=== PATIENT | female | born 1990 | race Caucasian/White ===

== ENCOUNTER 2017-03-23 11:08 | Emergency (ER) | payer SELFPAY ==
[~2017-03-23] VITALS: Ht 165.1 cm; Wt 69.2 kg
[~2017-03-23 11:08] MED LIST: NO DAILY MEDICATIONS
[2017-03-23 11:10] VITALS: Ht 165.1 cm; Wt 69.2 kg
--- OUTSIDE RECORDS SUMMARY | 2017-03-23 11:12 | XMS REPORT | Continuity of Care Document ---
Author Author [facility] Organization [facility] Address Unknown Phone Unavailable Support Name Relationship Address Phone BREANNA VILLALBA Aj DAMON Caregiver [address] [place] [address] Unavailable SCOTTYURYY Next Of Kin [address] [place], [place] [phone] Insurance Providers Guarantor Angel Scott Address [address] [place] [address] Payer Self Pay Subscriber's Name Angel Scott Nicole Relationship 18 Self Chief Complaint and Reason for Visit Chief Complaint Skin Rash/Abscess/Injury Reason for Visit [id number] Problems Past Problems Medical Problem Onset Date Right shoulder strain Unknown Spider bite Unknown Medications Current Home Medications Medication Dose Units Route Directions Days Qty Instructions Start Date No Daily Medications 03/13/17 Social History Social History Problem Response Recorded Date/Time Onset Date Status Hx Substance Use No 10/01/2009 4:28am Not Applicable Not Applicable Hx Alcohol Use No 10/01/2009 4:28am Not Applicable Not Applicable Hospital Discharge Instructions No hospital discharge instructions. Plan of Care Discharge Date 03/13/17 9:38am Disposition 01 DISCHARGED HOME, SELF-CARE Condition at Discharge Stable Instructions/Education Provided Insect Bite or Sting (DC) Brown Recluse Spider Bite (DC) Prescriptions See Medication Section Additional Instructions/Education You may take benadryl 25 mg every 4-6 hours if needed for allergic reaction, or may try claritin 10 mg daily. Watch for signs of infection and follow in clinic if concerned. Functional Status No functional status results. Allergies, Adverse Reactions, Alerts Allergen Type Severity Reaction Status Last Updated Penicillin g Allergy Mild RASH Active 03/13/17 Immunizations Query Response on File Recorded Date/Time Hx Influenza Vaccination Y JUL 2009, Aug 2009 10/01/09 4:28am Hx Pneumococcal Vaccination No 10/01/09 4:28am Hx Influenza Vaccination Y JUL 2009, H1N1 AUG 2009 10/01/09 4:28am Influenza Vaccine Hx NO 03/13/17 9:21am Tetanus Diptheria Vaccine History UNSURE 03/13/17 9:21am Vital Signs Acute Vital Signs Vital Response Date/Time Temperature (Fahrenheit) 97.3 deg F (96.8 - 99.1) 03/13/2017 9:23am Temperature (Calculated Celsius) 36.78297 degrees C (36.0 - 37.3) 03/13/2017 9:23am Pulse Rate (adult) 76 bpm (60 - 100) 03/13/2017 9:23am Respiratory Rate 16 breaths/min (10 - 20) 03/13/2017 9:23am O2 Sat by Pulse Oximetry 98 % (90 - 100) 03/13/2017 9:23am Blood Pressure 105/76 mm Hg 03/13/2017 9:23am Height (Inches) 63.25 inches 03/13/2017 9:23am Weight (Kilograms) 69.400 kg 03/13/2017 9:23am Body Mass Index (BMI) 26.0 03/13/2017 9:23am Results No known relevant diagnostic tests, laboratory data and/or discharge summary. Procedures No known history of procedures. Encounters Encounter Location Arrival/Admit Date Discharge/Depart Date Attending Provider Departed Emergency Room [facility] 03/13/17 9:11am 03/13/17 9: 38am BREANNA VILLALBA APRN Recent Diagnosis
[2017-03-23] MEDS ORDERED: NORMAL SALINE 1,000 ML IV ONE (11:23)
[2017-03-23] MEDS ORDERED: ONDANSETRON 4mg/2ml INJECTION IV ONE (11:30)
[2017-03-23] MEDS ORDERED: KETOROLAC 30mg/ml INJECTION IV ONE (11:30)
--- NOTE | 2017-03-23 11:31 | ERPDOC ---
Departure Disposition Decision Date: March 23, 2017 Disposition Decision Time: 13:01 Disposition: 01 DISCHARGED HOME, SELF-CARE Impression Impression Impression: Primary Impression: Ureterolithiasis Severity: Moderate Condition: Improved Seen By: Physician only Referrals: YOUR PHYSICIAN 1 Week Patient Instructions: Ureteral Stones (ED) Problems/Meds/Labs Reviewed?: Yes Medications reviewed and manag: Yes Additional Instructions: You have a kidney stone. Drink lots of water, take the flomax to help pass the stone, and use naproxen or ibuprofen to help with your pain. Only take the norco if the naproxen does not improve your pain. Follow up with your doctor in the next week to ensure that you have passed the stone. Departure Forms: Return to Work/School Permit Follow up care ordered?: Yes Mental Status: Alert, Oriented Scripts Tamsulosin HCl (Flomax) 0.4 Mg Capsule 0.4 MG PO HS for 14 Days, #14 CAP Take 1 capsule, by mouth, one time a day at BEDTIME. Prov: FEBRUARYPRUDENCIO DO 03/23/17 Hydrocodone/Acetaminophen ([place] 5-325 Tablet) 5-325 Tablet 1 TAB PO Q6HR Y for PAIN, #20 TAB 0 Refills Prov: FEBRUARYPRUDENCIO DO 03/23/17 HPI - Female General Chief Complaint: Abdominal Pain Stated Complaint: RIGHT SIDE PAIN Time Seen by Provider: 11:23 Source: patient Exam Limitations: no limitations HPI - Female Initial Comments 26yo woman presents to the ER today for right sided abdominal pain with radiation to her right flank. Pain started appx 2.5hrs ago. Pt has not taken anything for the pain; has never had similar sx. Is nauseated, but has not vomited. Is uncomfortable in any position. Occurred At: home Onset: Rapid Duration: 1-3 hrs Pain Scale: Now & Worst: 8/10 Severity/Quality: cramping, sharpness, stabbing Location: RLQ Radiation: right flank Activities at Onset: rest Prior Genitourinary Problems: none Associated Symptoms: nausea/vomiting, urinary frequency Hx of Similar Symptoms: No Is Pt now?: No Expected Date of Delivery: Oct 05, 2009 : 1 Para: 0 Allergies: Coded Allergies: penicillin G (Verified Allergy, Mild, RASH, 03/13/17) Past History Past Medical History Pt denies signifigant PMH Family History Family PMH: FOUND: cancer Vaccines Hx Influenza Vaccination: Yes (JUL 2009, H1N1 AUG 2009) Hx Pneumococcal Vaccination: No Social History Substance Use Type: does not use Alcohol Intake: occasionally Review of Systems GI Upper Abdomen: nausea, vomiting, DENIES: dysphagia, food intolerances, heartburn/indigestion, hematemesis Lower Abdomen: pain, DENIES: blood in stool, sana-colored stools, constipation , diarrhea, melena, painful BM General: frequency, urgency, DENIES: burning, cloudy urine, discharge, polyuria , renal stones All other Systems All Other Systems: Reviewed and Negative Physical Exam General General Nourishment: well nourished, well developed, appears stated age, adult , acute distress General Body Habitus: well groomed Vitals and Pain First Documented Vital Signs Date Time Temp Pulse Resp B/P Pulse Ox O2 Delivery O2 Flow Rate FiO2 03/23/17 11:10 97.8 71 18 122/82 99 Room Air Weight: Kilograms: 69.200 Height (feet): 5 Height (inches): 5.00 Triage Pain Scale: RN VS reviewed by Provider: Yes Normal Exams: Head: Normocephalic w/o trauma Eyes: Pupils are PERRLA w/ EOMI, No scleral icterus, irritation ENMT: No facial trauma, nasal exudates, pharyngeal erythema Neck: Full range of motion, without adenopathy, JVD Lymphatic: No lymphadenopathy Musculoskeletal: No tenderness, or deformity noted Integumentary: No rashes, hives, or bruising noted Neurologic: Patient is alert, and oriented Psychiatric: Patient exhibits, appropriate attention Respiratory (brief) Respiratory: FOUND: clear all haywood, equal bilaterally, symmetrical, NOT FOUND : rales, wheezes Cardiovascular (brief) Cardiac: FOUND: regular rate, regular rhythm, NOT FOUND: click, gallop, murmur , pedal edema, peripheral edema, rub Capillary Refill: <2 sec Pulses: all distal extremities, equal, strong Abdomen (brief) Abdominal Brief: FOUND: bowel normo active x4, soft, tender, NOT FOUND: distended, hepatosplenomegaly, pulsatile mass Comments Mildly TTP in periumbilicus; pos Kermit's on right. Differential Diagnoses Considering: Ectopic , New Diagnosis, , Pyelonephritis, Renal Colic, Tubovarian Abscess, UTI Progress Results/Orders Orders Procedure Category Date Status Time Cbc W/Auto LAB 03/23/17 Complete Diff-Reflex Manual 11:23 Bmp - Basic Metabolic LAB 03/23/17 Complete Panel 11:23 Iv Lock (Ed Only) EDM 03/23/17 Transmitted 11:23 Normal Saline (Normal PHA 03/23/17 Complete Saline Iv) 11:23 LAB 03/23/17 Complete Qualitative, Urine 11:23 Ct Renal W/Wo Contrast CT 03/23/17 Resulted Ketorolac (Toradol) PHA 03/23/17 Complete 11:30 Ondansetron Inj PHA 03/23/17 Complete (Zofran) 11:30 Iohexol (Omnipaque) PHA 03/23/17 Complete 11:49 Normal Saline (Ns) PHA 03/23/17 Complete 11:49 Saline Flush (Iv PHA 03/23/17 Complete Flush) 11:49 UA, LAB 03/23/17 Complete Dip&Micro(Complete) & 11:40 Hydrocodone/Acetaminophen PHA 03/23/17 Complete ([place] 5/325) 13:00 Tamsulosin (Flomax PHA 03/23/17 Complete 0.4 Mg) 13:00 Lab Results Laboratory Tests Test 03/23/17 11:40 White Blood Count 12.3T/MM3 Red Blood Count 4.42M/MM3 Hemoglobin 13.9GM/DL Hematocrit 41.8% Mean Corpuscular Volume 94.6UM3 Mean Corpuscular Hemoglobin 31.4UUG Mean Corpuscular Hemoglobin Concent 33.3GM/DL RDW Standard Deviation 38.6FL Platelet Count 405T/MM3 Mean Platelet Volume 10.4UM3 Immature Granulocyte % (Auto) 0.2% Neutrophils (%) (Auto) 72.7% Lymphocytes (%) (Auto) 21.1% Monocytes (%) (Auto) 4.3% Eosinophils (%) (Auto) 1.3% Basophils (%) (Auto) 0.4% Absolute Immature Granulocyte (auto 0.03T/MM3 Absolute Neutrophils (auto) 9.0T/MM3 Absolute Lymphocytes (auto) 2.6T/MM3 Absolute Monocytes (auto) 0.5T/MM3 Absolute Eosinophils (auto) 0.2T/MM3 Absolute Basophils (auto) 0.1T/MM3 Urine Collection Type Cleancatch-midstream Urine Color [place] Urine Turbidity Cloudy Urine pH 5.0 Urine Specific [place] 1.020 Urine Protein Negative Urine Glucose (UA) Negative Urine Ketones Negative Urine Blood Inconcl due to color Urine Nitrite Negative Urine Bilirubin Inconcl due to color Urine Urobilinogen 0.2EU/DL Urine Leukocyte Esterase Negative Urine RBC 5-10/HPF Urine WBC 0-1/HPF Urine Squamous Epithelial Cells 5-10 Urine Amorphous Urates Many Urine Bacteria Trace Urine Mucus Present Urine Culture Indicated Cult not indicated Urine Test Negative Turbidity < 20 Sodium Level 145MEQ/L Potassium Level 3.8MEQ/L Chloride Level 103MEQ/L Carbon Dioxide Level 27MEQ/L Anion Gap 15MEQ/L Blood Urea Nitrogen 11.0MG/DL Creatinine 0.7MG/DL Glomerular Filtration Rate Calc 100 BUN/Creatinine Ratio 16RATIO Glucose Level 108MG/DL Calculated Osmolality 279MOSM/KG Calcium Level 9.7MG/DL Icterus Index < 2 Chemistry Specimen Hemolysis 25 Medications Current ED Medications Sodium Chloride (Normal Saline IV) 1,000 ml @ 0 mls/hr Q0M ONCE IV Last administered on 03/23/17 11:39; Start 03/23/17 at 11:23; Stop 03/23/17 at 11:25 ; Status DC Ketorolac Tromethamine (Toradol) 30 mg O ONCE IV Last administered on 11:42; Start 03/23/17 at 11:30; Stop 03/23/17 at 11:31; Status DC Ondansetron HCl (Zofran) 4 mg O ONCE IV Last administered on 03/23/17 11:40; Start 03/23/17 at 11:30; Stop 03/23/17 at 11:31; Status DC Iohexol 1 bottle 1 bottle STK-MED ONCE .ROUTE ; Start 03/23/17 at 11:49; Stop at 11:50; Status DC Sodium Chloride (NS) 100 ml @ As Directed STK-MED ONCE .ROUTE ; Start 03/23/17 at 11:49; Stop 03/23/17 at 11:50; Status DC Sodium Chloride (Iv Flush) 10 ml STK-MED ONCE .ROUTE ; Start 03/23/17 at 11:49; Stop 03/23/17 at 11:50; Status DC Acetaminophen/ Hydrocodone Bitart ([place] 5/325) 1 tab O ONCE PO Last administered on 03/23/17 13:04; Start 03/23/17 at 13:00; Stop 03/23/17 at 13:01 ; Status DC Tamsulosin HCl (FLOMAX 0.4 mg) 0.4 mg O ONCE PO Last administered on 13:04; Start 03/23/17 at 13:00; Stop 03/23/17 at 13:01; Status DC Progress Progress Pt with 4mm ureteral stone on the right. Will treat pain and instruct to f/u with PCM. Pt voiced understanding of dx, prognosis, tx, and f/u need. CT CT : CT: Renal IV contrast Interpretation: Abnormal (Obstructing 4 mm right distal ureteral stone at the ureterovesicular junction), Reviewed Written Report PRUDENCIO DEAN DO March 23, 2017 11:31
[2017-03-23] MEDS ORDERED: IOHEXOL 300 MG/ML 100ml INJECTION ONE (11:49)
[2017-03-23] MEDS ORDERED: NORMAL SALINE 100 ML ONE (11:49)
[2017-03-23] MEDS ORDERED: SALINE FLUSH 10ml SYRINGE ONE (11:49)
[2017-03-23 11:58] LABS: COLOR,URINE ORANGE (YELLOW)
[2017-03-23 11:59] LABS: BASOPHILS # (AUTO) 0.1 T/MM3 (0-0.2); BASOPHILS % (AUTO) 0.4 % (0-2); EOSINOPHILS # (AUTO) 0.2 T/MM3 (0-0.5); EOSINOPHILS % (AUTO) 1.3 % (0-4); HCT - HEMATOCRIT 41.8 % (36-46); HGB - HEMOGLOBIN 13.9 GM/DL (12-16); IMMATURE GRANULOCYTE # (AUTO) 0.03 T/MM3 (0.00-0.03); IMMATURE GRANULOCYTE % (AUTO) 0.2 % (0.0-0.5); LYMPHOCYTES # (AUTO) 2.6 T/MM3 (1-4.8); LYMPHOCYTES % (AUTO) 21.1 % (23-45); MEAN CORPUSCULAR HGB 31.4 UUG (26-34); MEAN CORPUSCULAR HGB CONC(MCHC 33.3 GM/DL (31-37); MEAN CORPUSCULAR VOLUME 94.6 UM3 (80-100); MEAN PLATELET VOLUME 10.4 UM3 (9.4-12.4); MONOCYTES # (AUTO) 0.5 T/MM3 (0-0.8); MONOCYTES % (AUTO) 4.3 % (0-9.0); NEUTROPHILS % (AUTO) 72.7 % (33-66); RED BLOOD COUNT 4.42 M/MM3 (4.00-5.20); WBC - WHITE BLOOD COUNT 12.3 T/MM3 (4.5-11.0)
[2017-03-23 12:05] LABS: LEUKOCYTE ESTERASE ,URINE NEGATIVE (NEGATIVE); NITRITE,URINE NEGATIVE (NEGATIVE)
[2017-03-23 12:06] LABS: UROBILINOGEN,URINE 0.2 EU/DL (NORMAL)
[2017-03-23 12:07] LABS: BLOOD, URINE INCONCL DUE TO COLOR (NEGATIVE)
[2017-03-23 12:09] LABS: ANION GAP 15 MEQ/L (5-15); BUN/CREATININE RATIO 16 RATIO (6-26); CALCIUM 9.7 MG/DL (8.4-10.2); CHLORIDE 103 MEQ/L (98-107); CO2 - CARBON DIOXIDE 27 MEQ/L (22-30); CREATININE 0.7 MG/DL (0.7-1.2); GLOMERULAR FILTRATION RATE 100; GLUCOSE 108 MG/DL (65-110); POTASSIUM 3.8 MEQ/L (3.6-5); SODIUM 145 MEQ/L (134-144); WBC,URINE 0-1 /HPF (0-5)
[2017-03-23 12:10] LABS: BACTERIA,URINE TRACE (NEGATIVE); MUCUS,URINE PRESENT
--- NOTE | 2017-03-23 12:24 | NUR ---
IMAGING PT TO IMAGING AT THIS TIME VIA CART. NO SIGN OF DISTRESS AT THIS TIME.
--- NOTE | 2017-03-23 12:36 | NUR ---
IMAGING PT RETURN TO ROOM VIA CART FRO IMAGING AT THIS TIME.
--- NOTE | 2017-03-23 12:55 | DI ---
Indication: ITS.REASON right flank pain for one day with nausea and vomiting PROCEDURE: CT RENAL W/WO CONTRAST: Encounter: Initial Comparison: None Technique: Axial CT images were performed through the abdomen and pelvis before and after the administration of intravenous contrast. Coronal and sagittal 2-dimensional reformats. Automated Exposure Control and Iterative Reconstruction dose reducing techniques were utilized. Contrast: Omnipaque 300 89 mL Findings: The lung bases are grossly clear. The unenhanced images show a couple small 1 to 2 mm stones in the lower pole of the left kidney, nonobstructive. There is moderate to severe right hydronephrosis and hydroureter to the level of an obstructing 4 mm stone at the ureterovesicular junction. No left ureteral stone. Bladder appears normal. Uterus and ovaries are normal for age. No significant free pelvic fluid. No evidence of a bowel obstruction. The appendix is normal. Bone windows are normal. Postcontrast images show normal enhancement of the liver. No liver mass or bile duct dilatation. The gallbladder, spleen, pancreas and adrenal glands are within normal limits. Left kidney enhances normally. Slightly delayed enhancement of the right kidney due to the obstruction. Impression: 1. Obstructing 4 mm right distal ureteral stone at the ureterovesicular junction. 2. Left nephrolithiasis. .
[2017-03-23] MEDS ORDERED: TAMSULOSIN 0.4 MG CAPSULE PO ONE (13:00)
[2017-03-23] MEDS ORDERED: HYDROCODONE/APAP 5 mg/325 mg TABLET PO ONE (13:00)
[2017-03-23] MEDS ORDERED: HYDR-4246 PO (13:03)
[2017-03-23] MEDS ORDERED: TAMS-1 PO (13:03)
[2017-03-23 13:19] VITALS: BP 114/64; PULSE 71; RESP 18; TEMP 97.8; O2SAT 99
--- NOTE | 2017-03-23 13:19 | NUR ---
DEPART PT GIVEN DI FOR URETERAL STONES, NORCO, FLOMAX, F/U. RXS PROVIDED FOR NORCO AND NORCO. PT VERBALIZES UNDERSTANDING OF DI, MEDS, F/U. QUESTIONS ASKED/ANSWERED - DENIES FURTHER QUESTIONS/NEEDS AT THIS TIME. IV SITE REMOVED. PERSONAL BELONGINGS GATHERED. PT VERBALIZES THAT SHE WILL BE CALLING FOR A RIDE DUE TO NORCO BEING TAKEN. PT AMBULATED/ESCORTED TO ED EXIT - GAIT STABLE, NO SIGN OF DISTRESS.
== END 2017-03-23 13:19 | disposition home or self-care (01) ==
LOC: ED 11:08
DX: N13.2 Hydronephrosis with renal and ureteral calculous obstruction (principal)
CPT/HCPCS: 80048; 81001; 81025; 85025